=== PATIENT | male | born 1975 | race Caucasian/White ===

== ENCOUNTER → 2017-09-16 | Outpatient (CLI) | payer SELFPAY ==
--- NOTE | 2017-09-16 13:41 | CT ---
CT Calcium Score Clinical information: 42-year-old male for coronary artery disease risk assessment. Comparison: None. ECG Gating: Prospective Scan range: Thoracic inlet to diaphragm. Findings: Examination quality: Good. Limitation: None. Total calcium score: 7 Total volume score: 23 mm3 Percentile: 50-75 % Artery scores Left main coronary artery: 2 Left anterior descending artery: 0 Left circumflex artery: 2 Right coronary artery: 3 Other findings: Cardiac chambers: Unremarkable. Cardiac valves: Unremarkable. Thoracic aorta: Unremarkable. Lungs: Unremarkable. Upper abdomen: Unremarkable. Impression: Total calcium score of 7 corresponds with trace atherosclerotic plaque within the RCA with a very unl ikely, less than 10% risk of coronary artery disease and future cardiac event within the next 5 years . Reported By:
== END ==
LOC: RAD 08:18
PROVIDERS: ATTEND Family Medicine
DX: Z13.6 Encounter for screening for cardiovascular disorders (principal); Z82.49 Family history of ischemic heart disease and other diseases of the circulatory system